=== PATIENT | male | born 1975 | race Caucasian/White ===

== ENCOUNTER 2020-04-25 13:51 | Emergency (ER) | payer OTHER ==
[~2020-04-25] VITALS: Ht 180.3 cm; Wt 90.7 kg
== END 2020-04-25 18:32 | disposition home or self-care (01) ==
LOC: ER 13:51
DX: B34.9 Viral infection, unspecified (principal); Z03.818 Encounter for observation for suspected exposure to other biological agents ruled out; R05 Cough

== ENCOUNTER 2022-03-07 08:21 | Outpatient (CLI) | payer OTHER | END 2022-03-07 08:22 | disposition home or self-care (01) | LOC: SONOGRAMA 08:21 | DX: K76.0 Fatty (change of) liver, not elsewhere classified (principal) ==